=== PATIENT | male | born 1960 | race Caucasian/White ===

== ENCOUNTER → 2016-05-01 | Outpatient (CLI) | payer MEDICARE, MEDICAID ==
[2016-05-01 17:54] LABS: BUN/Creatinine Ratio 16.2; Calcium 8.7 mg/dL (8.5-10.1)
[2016-05-01 18:33] LABS: Uric Acid 7.4 mg/dL (3.5-7.2)
== END | disposition home or self-care (01) ==
LOC: LAB 12:28
PROVIDERS: ATTEND Internal Medicine Cardiovascular Disease
DX: I10 Essential (primary) hypertension (principal); M10.9 Gout, unspecified; R70.0 Elevated erythrocyte sedimentation rate
CPT/HCPCS: 36415; 80048; 84550; 85652

== ENCOUNTER → 2016-05-02 | Outpatient (CLI) | payer MEDICARE, MEDICAID | END | disposition home or self-care (01) | LOC: Rad HDHVI 09:37 | PROVIDERS: ATTEND Internal Medicine Cardiovascular Disease | DX: M17.11 Unilateral primary osteoarthritis, right knee (principal); M25.461 Effusion, right knee; M25.761 Osteophyte, right knee | CPT/HCPCS: 73562 ==

== ENCOUNTER → 2016-06-18 | Outpatient (CLI) | payer MEDICARE, MEDICAID ==
[2016-06-18 12:38] LABS: BUN/Creatinine Ratio 17.7; Calcium 8.9 mg/dL (8.5-10.1); Potassium 4.5 mmol/L (3.5-5.1)
== END | disposition home or self-care (01) ==
LOC: LAB 09:12
PROVIDERS: ATTEND Internal Medicine Cardiovascular Disease
DX: I10 Essential (primary) hypertension (principal); M10.9 Gout, unspecified
CPT/HCPCS: 36415; 80048; 84550

== ENCOUNTER → 2016-08-15 | Outpatient (CLI) | payer MEDICARE, MEDICAID ==
[2016-08-15 17:04] LABS: BUN/Creatinine Ratio 19.3; Calcium 9.1 mg/dL (8.5-10.1); Potassium 4.1 mmol/L (3.5-5.1)
== END | disposition home or self-care (01) ==
LOC: LAB 10:01
PROVIDERS: ATTEND Internal Medicine Cardiovascular Disease
DX: M10.9 Gout, unspecified (principal); I10 Essential (primary) hypertension; E03.9 Hypothyroidism, unspecified
CPT/HCPCS: 36415; 80048; 84439; 84443; 84550

== ENCOUNTER 2016-09-15 12:48 | Inpatient (IN) | payer MEDICARE, MEDICAID ==
[~2016-09-15] VITALS: Ht 152.4 cm; Wt 76.9 kg
[2016-09-15 13:24] LABS: Urine Bilirubin Negative (Negative); Urine Blood Negative /uL (Negative); Urine Color Yellow (Yellow); Urine Glucose Normal (Normal); Urine Ketone TRACE (Negative); Urine Nitrite Negative (Negative); Urine RBC <1 /hpf (0 - 3); Urine Squamous Epithelial Cell FEW /hpf (<5); Urine Urobilinogen Normal (Negative); Urine pH 5.5 (5.0-8.0)
[2016-09-15 13:24] LABS: Basophils # (auto) 0 uL; Basophils % (auto) 0.3 % (0.0-2.0); DEFINITIVE VIEW TRANSMISSION; Eosinophils # (auto) 0 uL; Eosinophils % (auto) 0.3 % (0.0-7.0); Hematocrit 47.4 % (41.0-53.0); Lymphocytes # (auto) 1.6 uL; Lymphocytes % (auto) 23.7 % (10.0-50.0); Mean Corpuscular Hemoglobin 34.8 pg (28.0-32.0); Mean Corpuscular Hgb Conc. 33.7 g/dL (32.0-36.0); Mean Corpuscular Volume 103.2 fL (80.0-100.0); Mean Platelet Volume 7.9 fL (7.4-10.4); Monocytes # (auto) 0.5 uL; Monocytes % (auto) 7.4 % (0.0-12.0); Neutrophils # (auto) 4.7 uL; Neutrophils % (auto) 68.3 % (37.0-80.0); Platelet Count (auto) 235 10^3/uL (140-450); White Blood Cell 6.8 10^3/uL (4.4-10.8)
[2016-09-15 13:50] LABS: Albumin 3.8 g/dL (3.4-5.0); BUN/Creatinine Ratio 15.7; Bilirubin, Total 1.3 mg/dL (0.2-1.0); Calcium 8.9 mg/dL (8.5-10.1); Total Protein 7.9 g/dL (6.4-8.2)
[2016-09-15] MEDS ORDERED: HYDROmorphone HCL 2 MG/ML VL IV ONE (18:30)
[2016-09-15] MEDS ORDERED: ONDANSETRON HCL 4 MG/2 ML VIAL IV ONE (18:30)
[2016-09-15] MEDS ORDERED: ACETAMINOPHEN 325 MG TAB PO PRN (22:00)
[2016-09-15] MEDS ORDERED: TEMAZEPAM 15 MG CAP PO PRN (22:00)
[2016-09-15] MEDS: COLCHICINE 0.6 MG CAP PO SCH (22:00)
[2016-09-15] MEDS: SODIUM CHLORIDE 0.9% 1,000 ML IV SCH (22:24)
[2016-09-15] MEDS: FAMOTIDINE 20 MG TAB PO SCH (22:25)
[2016-09-15 22:30] VITALS: BP 134/54
[2016-09-16] MEDS ORDERED: MULT1TAB61 PO (01:25)
[2016-09-16] MEDS ORDERED: LEVO100T8 PO (01:25)
[2016-09-16] MEDS ORDERED: OMEP20CA5 PO (01:25)
[2016-09-16] MEDS ORDERED: CETI10TA93 PO (01:25)
[2016-09-16] MEDS ORDERED: CHOL500021 PO (01:25)
[2016-09-16] MEDS ORDERED: FOLI1TAB6 PO (01:25)
[2016-09-16] MEDS ORDERED: ALL300T PO (01:25)
[2016-09-16] MEDS: HYDROcodone-ACET 5/325MG TAB PO PRN ×2 (03:41→21:40)
[2016-09-16] MEDS: ONDANSETRON HCL 4 MG/2 ML VIAL IV PRN ×2 (03:54→09:55)
[2016-09-16] MEDS: MORPHINE SULF INJ 2 MG/ML SYRINGE 1ML IV PRN ×2 (04:59→09:55)
[2016-09-16 05:32] VITALS: BP 106/52
[2016-09-16 06:17] LABS: Basophils # (auto) 0 uL; Basophils % (auto) 0.3 % (0.0-2.0); DEFINITIVE VIEW TRANSMISSION; Eosinophils # (auto) 0 uL; Eosinophils % (auto) 0.1 % (0.0-7.0); Hemoglobin 15.9 g/dL (13.5-17.5); Lymphocytes # (auto) 1.3 uL; Lymphocytes % (auto) 12.9 % (10.0-50.0); Mean Corpuscular Hemoglobin 35.3 pg (28.0-32.0); Mean Corpuscular Hgb Conc. 33.8 g/dL (32.0-36.0); Mean Corpuscular Volume 104.2 fL (80.0-100.0); Mean Platelet Volume 8.8 fL (7.4-10.4); Monocytes # (auto) 0.7 uL; Monocytes % (auto) 7.3 % (0.0-12.0); Neutrophils # (auto) 7.7 uL; Neutrophils % (auto) 79.4 % (37.0-80.0); Platelet Count (auto) 253 10^3/uL (140-450); Red Cell Distribution Width 16.1 % (11.6-16.0); White Blood Cell 9.8 10^3/uL (4.4-10.8)
[2016-09-16 06:29] LABS: Potassium 3.7 mmol/L (3.5-5.1)
[2016-09-16 06:33] LABS: Albumin 3.3 g/dL (3.4-5.0); BUN/Creatinine Ratio 13.2; Calcium 8.8 mg/dL (8.5-10.1)
[2016-09-16 06:35] LABS: Bilirubin, Total 1.4 mg/dL (0.2-1.0); Total Protein 7.4 g/dL (6.4-8.2)
[2016-09-16] MEDS: LEVOTHYROXINE SODIUM 100 MCG TAB PO SCH (06:36)
[2016-09-16 09:00] VITALS: BP 118/57
[2016-09-16] MEDS: COLCHICINE 0.6 MG CAP PO SCH ×2 (09:52→21:40)
[2016-09-16] MEDS: FOLIC ACID 1 MG TAB PO SCH (09:53)
[2016-09-16] MEDS: FAMOTIDINE 20 MG TAB PO SCH ×2 (09:53→21:40)
[2016-09-16] MEDS: ENOXAPARIN SOD 40 MG/0.4 ML SYRINGE SC SCH (09:54)
[2016-09-16] MEDS: SODIUM CHLORIDE 0.9% 1,000 ML IV SCH ×2 (10:29→21:40)
[2016-09-16] MEDS ORDERED: MANNITOL FTV 25% 12.5 GM/50 ML 50 ML IV ONE (10:30)
[2016-09-16 14:00] VITALS: BP 100/58
[2016-09-16 17:31] VITALS: BP 103/56
[2016-09-16] MEDS ORDERED: TAMSULOSIN HYDROCHLORIDE 0.4 MG CAP PO SCH (18:00)
[2016-09-16 20:00] VITALS: BP 94/49
[2016-09-16 22:00] VITALS: BP 94/49
[2016-09-17 05:00] VITALS: BP 106/62
[2016-09-17] MEDS: LEVOTHYROXINE SODIUM 100 MCG TAB PO SCH (05:32)
[2016-09-17 09:00] VITALS: BP 108/64
[2016-09-17] MEDS: COLCHICINE 0.6 MG CAP PO SCH (10:28)
[2016-09-17] MEDS: FOLIC ACID 1 MG TAB PO SCH (10:28)
[2016-09-17] MEDS: ENOXAPARIN SOD 40 MG/0.4 ML SYRINGE SC SCH (10:28)
[2016-09-17] MEDS: FAMOTIDINE 20 MG TAB PO SCH (10:28)
[2016-09-17] MEDS ORDERED: TAM04C PO (11:00)
[2016-09-17] MEDS: SODIUM CHLORIDE 0.9% 1,000 ML IV SCH (11:29)
[2016-09-17 13:00] VITALS: BP 110/67
== END 2016-09-17 14:20 | disposition home or self-care (01) | DRG 694 ==
LOC: ER 12:48 → OVERFLOW 12:49 → WEST WING 22:30
PROVIDERS: ADMIT Internal Medicine; ATTEND Internal Medicine
DX: N13.2 Hydronephrosis with renal and ureteral calculous obstruction (principal); E03.9 Hypothyroidism, unspecified; G47.00 Insomnia, unspecified; E66.9 Obesity, unspecified; M10.9 Gout, unspecified; Q90.9 Down syndrome, unspecified; Z80.6 Family history of leukemia; Z79.899 Other long term (current) drug therapy; Z68.33 Body mass index [BMI] 33.0-33.9, adult
CPT/HCPCS: 36415; 74000; 74176; 80053; 81001; 85025; 96374; 96375; 99291; J2405

== ENCOUNTER → 2016-12-02 | Day surgery (SDC) | payer MEDICARE, MEDICAID ==
[2016-12-01 12:53] LABS: Urine RBC None Seen /hpf (0 - 3)
[2016-12-01 13:25] LABS: Basophils # (auto) 0 uL; Basophils % (auto) 0.7 % (0.0-2.0); CONDITION Y; DEFINITIVE SEE PRINTOUT; Eosinophils # (auto) 0 uL; Eosinophils % (auto) 0.5 % (0.0-7.0); Hematocrit 45.3 % (41.0-53.0); Hemoglobin 15.4 g/dL (13.5-17.5); Lymphocytes # (auto) 1.4 uL; Lymphocytes % (auto) 22.5 % (10.0-50.0); Mean Corpuscular Hemoglobin 35.6 pg (28.0-32.0); Mean Corpuscular Volume 104.9 fL (80.0-100.0); Mean Platelet Volume 8.7 fL (7.4-10.4); Monocytes # (auto) 0.5 uL; Monocytes % (auto) 8.8 % (0.0-12.0); Neutrophils # (auto) 4.2 uL; Neutrophils % (auto) 67.5 % (37.0-80.0); Platelet Count (auto) 252 10^3/uL (140-450); Red Cell Distribution Width 16.6 % (11.6-16.0); White Blood Cell 6.2 10^3/uL (4.4-10.8)
[2016-12-01 13:31] LABS: INR 0.96 (0.9-1.15); Prothrombin Time 10.5 sec (9.37-12.3)
[2016-12-01 13:50] LABS: Potassium 3.9 mmol/L (3.5-5.1)
[2016-12-01 13:58] LABS: Albumin 3.6 g/dL (3.4-5.0)
[2016-12-01 14:01] LABS: Bilirubin, Total 0.9 mg/dL (0.2-1.0); Total Protein 7.2 g/dL (6.4-8.2)
[2016-12-01 14:12] LABS: Urine Bilirubin Negative (Negative); Urine Blood Negative /uL (Negative); Urine Color Yellow (Yellow); Urine Glucose Normal (Normal); Urine Ketone Negative (Negative); Urine Nitrite Negative (Negative); Urine Urobilinogen Normal (Negative); Urine pH 5.5 (5.0-8.0)
[~2016-12-02] VITALS: Ht 162.6 cm; Wt 76.2 kg
[~2016-12-02] MED LIST: ALL300T PO; CETI10TA93 PO; CHOL1CAP48 PO; COLC1TAB3 PO; FOLI1TAB6 PO; GLYCOPYRROLATE 0.2 MG/ML 1ML VIAL IV ONE; IOHEXOL 300 MG/ML 100ML BOTTLE IJ ONE; LEVO100T8 PO; MULT1TAB61 PO; NEOSTIGMINE 1 MG/ML INJ (10mg/10ML VIAL) IV ONE; OMEP20CA74 PO; ONDANSETRON HCL 4 MG/2 ML VIAL IV ONE; PROPOFOL 10 MG/ML 20 ML IV ONE; ROCURONIUM 10MG/ML 10ML VIAL IV ONE; TAM04C PO; ceFAZolin 1GM/50ML D5W 50 ML IV ONE; ePHEDrine SULFATE 50 MG/ML AMP IV PRN; fentaNYL CITRATE 100 MCG/2 ML VL IV ONE; fentaNYL CITRATE 100 MCG/2 ML VL ONE; hydrALAZINE HCL 20 MG/ML VL IV PRN
[2016-12-02 11:35] VITALS: BP 111/70
== END | disposition home or self-care (01) ==
LOC: SUR 08:00
PROVIDERS: ATTEND Urology
DX: N20.1 Calculus of ureter (principal); K21.9 Gastro-esophageal reflux disease without esophagitis; M10.9 Gout, unspecified
CPT/HCPCS: 36415; 50590; 80053; 81001; 85025; 85610; 85730; J0690; J2704; J3010

== ENCOUNTER → 2017-07-31 | Outpatient (CLI) | payer MEDICARE, MEDICAID, OTHER ==
[~2017-07-31] MED LIST changes: -GLYCOPYRROLATE 0.2 MG/ML 1ML VIAL IV ONE; -IOHEXOL 300 MG/ML 100ML BOTTLE IJ ONE; -NEOSTIGMINE 1 MG/ML INJ (10mg/10ML VIAL) IV ONE; -ONDANSETRON HCL 4 MG/2 ML VIAL IV ONE; -PROPOFOL 10 MG/ML 20 ML IV ONE; -ROCURONIUM 10MG/ML 10ML VIAL IV ONE; -ceFAZolin 1GM/50ML D5W 50 ML IV ONE; -ePHEDrine SULFATE 50 MG/ML AMP IV PRN; -fentaNYL CITRATE 100 MCG/2 ML VL IV ONE; -fentaNYL CITRATE 100 MCG/2 ML VL ONE; -hydrALAZINE HCL 20 MG/ML VL IV PRN
[2017-07-31 12:15] LABS: Basophils # (auto) 0.1 uL; Eosinophils # (auto) 0 uL; Lymphocytes # (auto) 1.1 uL; Neutrophils # (auto) 3.1 uL; Nucleated Red Blood Cells % 0.1 %
[2017-07-31 12:19] LABS: Basophils % (auto) 2.2 % (0.0-2.0); Hematocrit 52.3 % (41.0-53.0); Hemoglobin 17.8 g/dL (13.5-17.5); Lymphocytes % (auto) 22.7 % (10.0-50.0); Mean Corpuscular Hemoglobin 36.5 pg (28.0-32.0); Mean Corpuscular Volume 107.3 fL (80.0-100.0); Monocytes # (auto) 0.4 uL; Monocytes % (auto) 8.5 % (0.0-12.0); Neutrophils % (auto) 65.6 % (37.0-80.0); Platelet Count (auto) 162 10^3/uL (140-450); Red Blood Cells 4.88 10^6/uL (4.5-5.90); Red Cell Distribution Width 16.4 % (11.8-14.3); Urine Blood Negative /uL (Negative); Urine Specific Gravity 1.017 (1.001-1.035); White Blood Cell 4.7 10^3/uL (4.4-10.8)
[2017-07-31 12:32] LABS: T3 Total 1.01 ng/mL (0.60-1.81)
[2017-07-31 12:33] LABS: Folate (Folic Acid) 17.7 ng/mL (5.38-24)
[2017-07-31 12:38] LABS: Bilirubin, Direct 0.2 mg/dL (0-0.2); Bilirubin, Total 1.2 mg/dL (0.2-1.0); Potassium 4.5 mmol/L (3.5-5.1); Total Protein 8.2 g/dL (6.4-8.2); Uric Acid 4.2 mg/dL (3.5-7.2)
[2017-07-31 12:59] LABS: Free T4 (Free Thyroxine) 1.23 ng/dL (0.89-1.76)
== END | disposition home or self-care (01) ==
LOC: LAB 09:05
PROVIDERS: ATTEND Internal Medicine Cardiovascular Disease
DX: E78.5 Hyperlipidemia, unspecified (principal); D64.9 Anemia, unspecified; M10.9 Gout, unspecified; E03.9 Hypothyroidism, unspecified; E11.9 Type 2 diabetes mellitus without complications; N20.9 Urinary calculus, unspecified; E55.9 Vitamin D deficiency, unspecified; D52.9 Folate deficiency anemia, unspecified
CPT/HCPCS: 36415; 80048; 80061; 80076; 81003; 82306; 82607; 82746; 83036; 84439; 84443; 84480; 84550; 85025

== ENCOUNTER → 2018-02-04 | Outpatient (CLI) | payer MEDICARE, MEDICAID | END | disposition home or self-care (01) | LOC: LAB 10:20 | PROVIDERS: ATTEND Internal Medicine | DX: K90.0 Celiac disease (principal); R19.7 Diarrhea, unspecified | CPT/HCPCS: 82306; 85048; 87045; 87177; 87493; 87899 ==

== ENCOUNTER → 2018-02-16 | Outpatient (CLI) | payer MEDICARE, MEDICAID ==
[2018-02-16 16:04] LABS: Basophils # (auto) 0 uL; Basophils % (auto) 0.5 % (0.0-2.0); Eosinophils # (auto) 0 uL; Eosinophils % (auto) 0.1 % (0.0-7.0); Hemoglobin 16.3 g/dL (13.5-17.5); Monocytes # (auto) 0.7 uL
[2018-02-16 16:08] LABS: Hematocrit 48.4 % (41.0-53.0); Mean Corpuscular Hemoglobin 36.8 pg (28.0-32.0); Mean Corpuscular Hgb Conc. 33.7 g/dL (32.0-36.0); Monocytes % (auto) 7.3 % (0.0-12.0); Neutrophils # (auto) 7.6 uL; Neutrophils % (auto) 81.1 % (37.0-80.0); Nucleated Red Blood Cells % 0.1 %; Platelet Count (auto) 154 10^3/uL (140-450); Red Blood Cells 4.44 10^6/uL (4.5-5.90); Red Cell Distribution Width 16.5 % (11.8-14.3); White Blood Cell 9.4 10^3/uL (4.4-10.8)
[2018-02-16 16:10] LABS: Urine Blood Negative /uL (Negative); Urine Specific Gravity 1.016 (1.001-1.035)
[2018-02-16 16:13] LABS: Albumin 3.4 g/dL (3.4-5.0); Calcium 8.4 mg/dL (8.5-10.1); Potassium 3.8 mmol/L (3.5-5.1); Uric Acid 5.4 mg/dL (3.5-7.2)
[2018-02-16 16:17] LABS: Bilirubin, Total 0.5 mg/dL (0.2-1.0); Total Protein 6.7 g/dL (6.4-8.2)
== END | disposition home or self-care (01) ==
LOC: Rad HDHVI 10:47
PROVIDERS: ATTEND Internal Medicine
DX: K42.9 Umbilical hernia without obstruction or gangrene (principal); M10.9 Gout, unspecified; I10 Essential (primary) hypertension; D64.9 Anemia, unspecified; R74.8 Abnormal levels of other serum enzymes; N39.0 Urinary tract infection, site not specified; Z90.49 Acquired absence of other specified parts of digestive tract
CPT/HCPCS: 36415; 74176; 80053; 81003; 82150; 83690; 84550; 85025; 87086

== ENCOUNTER 2018-10-27 08:47 | Inpatient (IN) | payer MEDICARE, MEDICAID ==
[~2018-10-27] VITALS: Ht 160 cm; Wt 76.6 kg
[~2018-10-27 08:47] MED LIST changes: -CHOL1CAP48 PO; +CHOL20007 PO; -COLC1TAB3 PO; +DICY20TA66 PO; +MIDO5TAB PO; -OMEP20CA74 PO; +RANI300T3 PO; -TAM04C PO; +[UNRECOGNIZED DRUG - CODE] PO
[2018-10-27 09:47] LABS: Chloride 107 mmol/L (98-107); Potassium 3.8 mmol/L (3.5-5.1); Sodium 144 mmol/L (136-145)
[2018-10-27 09:58] LABS: Alanine Aminotransferase 31 U/L (16-61); Albumin 3.3 g/dL (3.4-5.0); Anion Gap 10 (5-15); Aspartate Aminotransferase 22 U/L (15-37); BUN/Creatinine Ratio 11.9; Blood Urea Nitrogen 14 mg/dL (7-18); Calcium 8.5 mg/dL (8.5-10.1); Carbon Dioxide 27 mmol/L (21-32); GFR African American 82 mL/min; GFR Non-African American 67 mL/min; Glucose 65 mg/dL (74-106)
[2018-10-27 09:59] LABS: Basophils # (auto) 0.1 uL; Eosinophils # (auto) 0 uL; Eosinophils % (auto) 0.8 % (0.0-7.0); Hemoglobin 16.8 g/dL (13.5-17.5); Lymphocytes # (auto) 1.1 uL; Lymphocytes % (auto) 27.9 % (10.0-50.0); Mean Corpuscular Hemoglobin 35.6 pg (28.0-32.0); Mean Corpuscular Hgb Conc. 33.5 g/dL (32.0-36.0); Mean Corpuscular Volume 106.2 fL (80.0-100.0); Monocytes # (auto) 0.5 uL; Monocytes % (auto) 12.9 % (0.0-12.0); Neutrophils # (auto) 2.2 uL; Neutrophils % (auto) 56.4 % (37.0-80.0); Nucleated Red Blood Cells % 0.3 %; Platelet Count (auto) 154 10^3/uL (140-450); Red Blood Cells 4.71 10^6/uL (4.5-5.90); Red Cell Distribution Width 15.9 % (11.8-14.3); White Blood Cell 3.9 10^3/uL (4.4-10.8)
[2018-10-27 10:03] LABS: Alkaline Phosphatase 87 U/L (45-117); Total Protein 7.3 g/dL (6.4-8.2)
[2018-10-27] MEDS ORDERED: SODIUM CHLORIDE 0.9% 1,000 ML IV ONE (10:12)
[2018-10-27] MEDS ORDERED: NITROGLYCERIN 0.4 MG SL TAB SL PRN (14:30)
[2018-10-27] MEDS ORDERED: MORPHINE SULF INJ 2 MG/ML SYRINGE 1ML IV PRN (14:30)
[2018-10-27] MEDS: PANCRELIPASE PO SCH (18:00)
[2018-10-27 19:01] LABS: Urine WBC None Seen /hpf (0 - 3)
[2018-10-27 19:31] LABS: Urine Bacteria NONE SEEN /hpf (None Seen); Urine Blood Negative /uL (Negative); Urine Specific Gravity 1.006 (1.001-1.035)
--- NOTE | 2018-10-27 20:55 | NUR ---
Telemetry admit from ER [facility] admitted to Telemetry unit after SBAR received. Patient oriented to Karin Polanco, primary RN, unit, room, bed, and unit policies regarding patient care and visiting hours. Patient now on continuous telemetry monitoring, tele box # [32] and telemetry reading on arrival to unit is [SR [id number]]. Patient placed on bedside oxygen, weighed by bedscale and encouraged to call if they need something. All questions and concerns addressed, patient verbalized understanding. Note: CAREGIVER AT BEDSIDE. PATIENT A & O X 1. NOT BE ABLE TO ANSWER QUESTIONS. CAREGIVER PROVIDED MEDICAL HISTORY. SITTER AT BEDSIDE FOR SAFETY. BED IN LOWEST POSITION WITH SIDE RAILS UP X 2. CALL [facility] WITHIN REACH. ALARM ON. CONTINUE TO MONITOR FOR CHANGES Q1H AND PRN.
--- NOTE | 2018-10-27 21:15 | NUR ---
MRSA SWAB COLLECTED AND SENT. CONTINUE CARE.
--- NOTE | 2018-10-27 21:34 | NUR ---
WOUND PICTURE DONE. PATIENT TOLERATED WELL. CONTINUE TO MONITOR.
[2018-10-27 22:00] VITALS: BP 98/59
[2018-10-27] MEDS: FAMOTIDINE (10MG/ML) 2ML VL IV SCH (22:07)
[2018-10-27] MEDS: MIDODRINE HCL 10 MG TAB PO SCH (22:07)
--- NOTE | 2018-10-27 22:12 | NUR ---
ORAL MEDICATION GIVEN ORDERED. PATIENT SWALLOWED WELL. NO S/S OF ASPIRATION NOTED. CONTINUE TO MONITOR.
[2018-10-28] VITALS (9 sets, daily range): BP systolic 103–140; BP diastolic 42–114
--- NOTE | 2018-10-28 03:15 | NUR ---
PATIENT SLEEPING. NO S/S OF DISTRESS NOTED. SITTER AT BEDSIDE. CONTINUE CAR.E
[2018-10-28] MEDS: PANCRELIPASE PO SCH ×2 (08:00→18:00)
[2018-10-28] MEDS: FAMOTIDINE (10MG/ML) 2ML VL IV SCH ×2 (09:37→21:40)
[2018-10-28] MEDS: FOLIC ACID 1 MG TAB PO SCH (09:38)
[2018-10-28] MEDS: LORATADINE 10 MG TAB PO SCH (09:38)
[2018-10-28] MEDS: MULTIPLE VITAMINS W/ MINERALS TAB PO SCH (09:39)
[2018-10-28] MEDS: LEVOTHYROXINE SODIUM 100 MCG TAB PO SCH (09:40)
[2018-10-28] MEDS: MIDODRINE HCL 10 MG TAB PO SCH ×2 (09:40→21:40)
[2018-10-28] MEDS: ALLOPURINOL 300 MG TAB PO SCH (09:41)
[2018-10-28] MEDS ORDERED: FAMOTIDINE 20 MG TAB PO SCH (10:00)
--- NOTE | 2018-10-28 12:00 | NUR ---
PATIENT BRADYCARDIAC PUSHPA FISHER, CARDIOLOGY FOOD STYLIST PER ORDERS FOR BRADYCARDIA. TELEMETRY STRIP PRINTED AND PLACED IN CHART. HEART RATE 47, ASYMPTOMATIC. WILL CONTINUE CARE. Addendum: 10/28/18 at 1242 by NATHANAEL SALAS RN KAT FISHER MADE AWARE.
--- NOTE | 2018-10-28 19:13 | NUR ---
CLOSING NOTE ENDORSED CARE TO FABRICATOR INDUSTRIAL FURNACE RN. SITTER AT BEDSIDE. BED IN LOW LOCK POSITION, CALL LIGHT IN REACH. NO S/S OF DISTRESS.
--- NOTE | 2018-10-28 19:28 | NUR ---
RECEIVED PATIENT FROM DAY SHIFT RN. PATIENT RESTING IN BED. NO S/S OF DISTRESS NOTED. FAMILY AND CAREGIVER AT BEDSIDE. DENIED PAIN FOR NOW. REORIENTED PATIENT PLACE, TIME, SITUATION. POC INSTRUCTED AND ENCOURAGED PATIENT TO CALL FOR PADDING MACHINE OPERATOR IF NEEDED. PATIENT COULD NOT VERBALIZE UNDERSTANDING. BED IN LOWEST POSITION WITH SIDE RAILS UP X 2. CALL [facility]ARE[facility] WITHIN REACH. ALARM ON. SITTER AT BEDSIDE FOR SAFETY. CONTINUE TO MONITOR FOR CHANGES Q1H AND PRN.
--- NOTE | 2018-10-28 21:52 | NUR ---
ORAL MEDICATION GIVEN ORDERED. PATIENT SWALLOWED WELL. NO S/S OF ASPIRATION NOTED. CONTINUE TO MONITOR.
--- NOTE | 2018-10-29 02:31 | NUR ---
PATIENT SLEEPING. NO S/S OF DISTRESS NOTED. SITTER AT BEDSIDE FOR SAFETY. CONTINUE CARE.
[2018-10-29 05:00] VITALS: BP 105/71
--- NOTE | 2018-10-29 06:31 | NUR ---
PATIENT SLEEPING. NO S/S OF DISTRESS NOTED. CONTINUE CARE.
--- NOTE | 2018-10-29 07:52 | NUR ---
MICROBIOLOGY RECEIVED CALL PATIENT IS POSITIVE FOR MRSA NARES. CHARGE NURSE INFORMED. WILL INFORM .
[2018-10-29] MEDS: PANCRELIPASE PO SCH ×2 (08:00→18:00)
--- NOTE | 2018-10-29 08:00 | NUR ---
PATIENT PLACED IN ISOLATION PER PROTOCOL.
[2018-10-29 09:00] VITALS: BP 91/54
[2018-10-29] MEDS: FOLIC ACID 1 MG TAB PO SCH (09:34)
[2018-10-29] MEDS: FAMOTIDINE (10MG/ML) 2ML VL IV SCH (09:34)
[2018-10-29] MEDS: LORATADINE 10 MG TAB PO SCH (09:35)
[2018-10-29] MEDS: LEVOTHYROXINE SODIUM 100 MCG TAB PO SCH (09:35)
[2018-10-29] MEDS: MIDODRINE HCL 10 MG TAB PO SCH (09:35)
[2018-10-29] MEDS: MULTIPLE VITAMINS W/ MINERALS TAB PO SCH (09:35)
[2018-10-29] MEDS: ALLOPURINOL 300 MG TAB PO SCH (09:35)
--- NOTE | 2018-10-29 12:30 | NUR ---
PATIENT FAMILY REQUESTING TO SPEAK WITH MD ANTHONY FISHER AWARE OF PATIENT FAMILY REQUEST. STATED SHE WILL INFORM DR. CRUZ. WILL CONTINUE TO MONITOR.
[2018-10-29 13:00] VITALS: BP 129/54
--- NOTE | 2018-10-29 17:40 | NUR ---
NEW ORDERS RECEIVED FROM MD CRUZ. READ BACK AND VERIFIED. OK TO DISCHARGE ONCE LABS ARE DRAWN. WILL FOLLOW THROUGH WITH NEW ORDERS.
[2018-10-29 17:42] VITALS: BP 101/60
--- NOTE | 2018-10-29 19:30 | NUR ---
Discharge instructions given as ordered. Encourage to follow up with PMD as instructed. All questions and concerns addressed. Patient verbalized understanding. Medication reconciliation form completed and copy given to patient. IV removed with catheter intact, pressure dressing applied. Telemetry unit returned to ICU. Patient taken to vehicle via wheelchair with all personal belongings, accompanied by staff and caregiver. No distress noted at time of departure.
[2018-10-29] MEDS ORDERED: MUPIROCIN 2% OINT 15gm or 22gm TOP SCH (22:00)
== END 2018-10-29 19:30 | disposition home or self-care (01) | DRG 309 ==
LOC: EDBD 08:47 → EDUNIT# 08:47 → ER 08:52 → TELE 08:53 → TELE-WESTW 20:46
PROVIDERS: ADMIT Nurse Practitioner Acute Care; ATTEND Family Medicine
DX: I49.5 Sick sinus syndrome (principal); E44.1 Mild protein-calorie malnutrition; J98.11 Atelectasis; I95.1 Orthostatic hypotension; M10.9 Gout, unspecified; K58.9 Irritable bowel syndrome, unspecified; G30.9 Alzheimer's disease, unspecified; D75.89 Other specified diseases of blood and blood-forming organs; E16.2 Hypoglycemia, unspecified; E89.0 Postprocedural hypothyroidism; F02.80 Dementia in other diseases classified elsewhere, unspecified severity, without behavioral disturbance, psychotic disturbance, mood disturbance, and anxiety; I10 Essential (primary) hypertension; K21.9 Gastro-esophageal reflux disease without esophagitis; N20.0 Calculus of kidney; Z68.29 Body mass index [BMI] 29.0-29.9, adult; Z79.890 Hormone replacement therapy; Z79.899 Other long term (current) drug therapy; Z80.6 Family history of leukemia; Z87.442 Personal history of urinary calculi; Z90.49 Acquired absence of other specified parts of digestive tract
CPT/HCPCS: 36415; 51702; 70450; 71046; 80053; 81001; 82533; 83735; 84443; 84484; 85025; 87081; 93005; 94761; 95819; 96361; 96374; G0378; J3490

== ENCOUNTER → 2018-11-09 | Outpatient (CLI) | payer MEDICARE, MEDICAID | END | disposition home or self-care (01) | LOC: Rad HDHVI 15:58 | PROVIDERS: ATTEND Internal Medicine | DX: M51.36 Other intervertebral disc degeneration, lumbar region (principal); M43.16 Spondylolisthesis, lumbar region; M25.551 Pain in right hip; M25.552 Pain in left hip | CPT/HCPCS: 72170 ==

== ENCOUNTER → 2018-11-12 | Outpatient (CLI) | payer MEDICARE, MEDICAID | END | disposition home or self-care (01) | LOC: LAB 08:50 | PROVIDERS: ATTEND Internal Medicine Cardiovascular Disease | DX: A49.02 Methicillin resistant Staphylococcus aureus infection, unspecified site (principal); E27.8 Other specified disorders of adrenal gland | CPT/HCPCS: 82533; 87081 ==